=== PATIENT | female | born 1980 | race Caucasian/White ===

== ENCOUNTER → 2017-10-11 09:22 | Outpatient (CLI) | payer MEDICAID, SELFPAY ==
--- NOTE | 2017-09-06 16:12 | EKG12_ITS ---
Test Reason : PRE OP Blood Pressure : / mmHG Vent. Rate : 082 BPM Atrial Rate : 082 BPM P-R Int : 162 ms QRS Dur : 094 ms QT Int : 374 ms P-R-T Axes : 056 076 044 degrees QTc Int : 436 ms Normal sinus rhythm with sinus arrhythmia Normal ECG Confirmed by PETRA LUTZ, OCTAVIO ([id number]), dictionary editor LOI CHANG ([id number]) on 09/08/2017 12:47:40 PM Referred By: Confirmed By:OCTAVIO LAMBERT MD
[2017-09-06 17:03] LABS: International Normalized Ratio 1.1; Prothrombin Time (Protime)PT. 13.5 SECONDS (11.7-14.9)
[2017-09-06 17:04] LABS: Partial Thromboplast Time 30.6 Seconds (24.1-36.2)
[2017-09-06 17:06] LABS: AST(SGOT) 21 U/L (15-37); Alanine Aminotransfer ALT/SGPT 25 U/L (12-78); Albumin, Serum 3.1 g/dL (3.4-5.0); Alkaline Phosphatase 66 U/L (45-117); Bilirubin, Direct 0.07 mg/dL (0.00-0.30); Globulin 4.9 g/dL (2.2-4.2)
== END ==
PROVIDERS: Family Provider Nurse Practitioner Family; PCP Nurse Practitioner Family; Visit Provider Podiatrist
DX: Z01.818 Encounter for other preprocedural examination (principal)
CPT/HCPCS: 36415; 80076; 85610; 85730; 93005

== ENCOUNTER → 2018-03-02 08:15 | Outpatient (CLI) | payer MEDICAID, SELFPAY ==
--- NOTE | 2018-03-02 08:19 | RAD_ITS ---
STUDY: X-RAY - RIGHT SHOULDER REASON FOR EXAM: Chronic shoulder pain from a fall, previous surgery. TECHNIQUE: 3 view(s) of the shoulder. COMPARISON: None. FINDINGS: Normal glenohumeral articulation. Normal acromioclavicular joint. Normal acromion. Normal humeral head and visualized proximal humerus. The soft tissue structures are unremarkable. Normal visualized pulmonary apex. RAD/Shoulder min 2 Views IMPRESSION: Unremarkable x-ray examination of the right shoulder. Electronically Signed: Quinton Gordon MD at 9:03 EDT Tel , Service support ,
== END ==
PROVIDERS: Family Provider Nurse Practitioner Family; PCP Nurse Practitioner Family; Visit Provider Orthopaedic Surgery
DX: M25.511 Pain in right shoulder (principal); G89.29 Other chronic pain
CPT/HCPCS: 73030

== ENCOUNTER → 2018-04-12 10:10 | Outpatient (CLI) | payer MEDICAID, SELFPAY ==
--- NOTE | 2018-04-12 10:25 | RAD_ITS ---
CLINICAL HISTORY: Female, 37 years old. Chronic shoulder pain. Prior torn labrum and rotator cuff surgery. PROCEDURE: ARTHROGRAM - RIGHT SHOULDER CONSENT: The procedure as well as the benefits and possible complications including infection and bleeding were explained to the patient. Informed consent was obtained. FLUOROSCOPY TIME (if supplied): (0:58) minutes/seconds Injection Information: 10 cc of dilute MR contrast. Number of images obtained: 4 TECHNIQUE: (All elements of maximal sterile barrier technique followed, including US elements as applicable) The patient was in the supine position. The overlying skin was prepped and draped in the usual sterile fashion. Following local anesthetic application and under direct fluoroscopic guidance, a 22-gauge spinal needle was utilized to access the shoulder joint. 2 cc of a Isovue-300 was injected for confirmation. Following this, 10 cc of dilute MRI contrast was injected. The patient tolerated the procedure well. RAD/Arthrogram Shoulder w/ MRI IMPRESSION: Successful right shoulder arthrogram with injection of 10 cc of dilute MRI contrast. Electronically Signed: Harrison Beauchamp MD at 11:34 EDT Tel [phone], Service support ,
--- NOTE | 2018-04-12 10:31 | MRI_ITS ---
STUDY: MRI ARTHROGRAM OF RIGHT SHOULDER REASON FOR EXAM: Female, 37 years old. History of prior rotator cuff surgery in 2004. Fall 3 weeks ago. Pain. Popping. Evaluate for labral abnormality. TECHNIQUE: Standardized fat and water weighted pulse sequences were obtained in all 3 orthogonal planes after the intra-articular administration of 10 cc of a solution containing 0.8 mL of Magnevist contrast. Abduction and external rotation images were also obtained. COMPARISON: Radiographs of the shoulder dated March 02, 2018 FINDINGS: There is adequate joint distention with contrast. There is supraspinatus tendinosis with a partial articular surface tear of the far anterior fibers measuring approximately 8 mm in widest diameter and occupying approximately 80% of the tendon thickness (coronal series 5 image 12). There is an extension of the partial articular surface tear medially with a longitudinal split tear of the tendon adjacent to the partial articular surface tear (coronal series 5 image 12). There is marked thinning/attenuation of the infraspinatus tendon without a full-thickness tear (coronal series 5 image 10). There is subscapularis tendinosis with minimal thickening without a full-thickness tear (axial series 4 images 8-11). Normal teres minor tendon. Normal supraspinatus muscle. Normal infraspinatus muscle. Normal subscapularis muscle. Normal teres minor muscle. Normal glenohumeral articulation. There is minimal cystic change in the lateral aspect of the humeral head (coronal series 6 image 11). Normal biceps labral complex. Normal intracapsular long biceps tendon. Normal labrum. Normal capsulo- ligamentous complex. Normal rotator interval. There is acromioclavicular joint hypertrophy with narrowing of the subacromial space (coronal series 6 images 10-14). There is a Type II morphology (curved), with a neutral orientation. There is no subacromial-subdeltoid bursal fluid. Normal visualized coracohumeral and coracoacromial ligaments. Normal quadrilateral space. Normal axillary space. Normal deltoid muscle. Normal trapezius muscle. MRI/Upper Ext Jt Only W/Contrast IMPRESSION: Supraspinatus tendinosis with a partial articular surface tear as described. Infraspinatus and subscapularis tendinosis without a full-thickness tear. Minimal cystic change in the humeral head. Acromioclavicular joint hypertrophy with narrowing of the subacromial space. No abnormality identified in the glenoid labrum. Electronically Signed: Abiodun Brunson MD at 11:06 EDT , Service support ,
== END ==
PROVIDERS: Family Provider Nurse Practitioner Family; PCP Nurse Practitioner Family; Visit Provider Orthopaedic Surgery
DX: S43.439A Superior glenoid labrum lesion of unspecified shoulder, initial encounter (principal); M25.311 Other instability, right shoulder
CPT/HCPCS: 23350; 73222; 77002; A9577; Q9967

== ENCOUNTER 2018-10-18 07:47 | Day surgery (SDC) | payer MEDICAID, SELFPAY ==
[2018-09-28 09:59] VITALS: BMI 56.1
[2018-10-18] VITALS (9 sets, daily range): BP systolic 120–141; BP diastolic 45–82; PULSE 88–106; RESP 16–18; TEMP 36.1–36.8; O2SAT 95–99; BMI 58.7
[2018-10-18 08:19] LABS: Internal QC Validated? YES +Cl - CLEAR BKGD; Pregnancy, Urine Negative Negative
[2018-10-18] MEDS: Cefazolin 2 GM in 0.9% Normal Saline 100 ML IV (11:05)
[2018-10-18] MEDS: Bupiv/Epi 0.5% Mpf 30 ML Vial (11:18)
[2018-10-18] MEDS: MethylPREDNISolone Acetate 80 MG/ML Vial (11:50)
[2018-10-18] MEDS: Bupivacaine 0.5% PF 10 ML VIAL (11:50)
[2018-10-18] MEDS: Morphine 4 MG/ML Syringe IV (11:50)
--- NOTE | 2018-10-18 12:16 | PCM.DC.ORTHO ---
Discharge Diet: No Restrictions Discharge Activity: May Not Shower Call your doctor if you observe: Inability to urinate, Inability to have a bowel movement, Shortness of breath, Increased palpitations (irregular heartbeat) Additional Instructions: Keep dressing on for 48 hours. Then may remove begin showering daily and apply Band-Aids as needed. Active range of motion is okay avoid heavy lifting pushing or pulling with the operative extremity. Ice 15 minutes on 15 minutes off for the next week encourage elbow wrist and shoulder range of motion no tub baths for 3 weeks postop Allergies/Adverse Reactions: Allergies adhesive Allergy (Verified 10/03/18 14:12) Rash Medications to take at Discharge Cetirizine HCl [Zyrtec] 10 mg PO QHS 09/02/17 Fluticasone 0.05% [Flonase Nasal Hana] 2 spray NASAL QHS 09/02/17 Hydroxyzine HCl 100 mg PO QHS 09/02/17 Losartan Potassium [Cozaar] 100 mg PO QHS 09/02/17 Omeprazole [Prilosec] 40 mg PO QHS 09/02/17 Sertraline HCl [Zoloft] 100 mg PO QHS 09/02/17 Ferrous Sulfate 325 mg PO QHS 10/03/18 MedroxyPROGESTERone [Depo-Provera] 150 mg IM .[id number] 10/03/18 amoxicillin 500 mg capsule 500 mg PO BID #12 cap 10/09/18 Oxycodone HCl/Acetaminophen [Percocet 5/325] 1 - 2 tablet PO Q4H PRN PRN 7 Days #60 tablet 10/18/18 The following prescriptions were given: Oxycodone HCl/Acetaminophen [Percocet 5/325] 1 - 2 tablet PO Q4H PRN PRN 7 Days #60 tablet PRN Reason: Pain Orders to be completed after discharge: 12 Lead EKG [CVS] Time Frame: 10/03/18, Facility: [facility], Location: Cardiovascular Services Partial Thromboplast Time Time Frame: 10/03/18, Location: Laboratory CBC-Complete Blood Cnt No Diff Time Frame: 10/03/18, Location: Laboratory Comprehensive Metabolic Profil Time Frame: 10/03/18, Location: Laboratory Prothrombin Time w/INR Time Frame: 10/10/18, Location: Laboratory Primary Care Physician: [place],Belkys, PICKER PACKER-C [Primary Care Provider] - Test Results: Test results from this visit will be discussed in further detail at your follow-up appointment, if applicable. Please Follow Up With: Saleem Goddard DO - [facility] Proposed Discharge Date: 10/18/18
--- NOTE | 2018-10-18 12:26 | OP.PCM_ITS ---
Report of Operation Date of Procedure: 10/18/18 Description of Surgical Findings:: Preoperative diagnosis: Right shoulder partial rotator cuff tear biceps tendinopathy Postoperative diagnosis: No significant rotator cuff tear degenerative anterior and superior labral tearing biceps tendinopathy subacromial Impingement Procedure right shoulder arthroscopic labral debridement biceps tenotomy evaluation of rotator cuff and subacromial decompression Anesthesia: General. No block was performed secondary to patient's BMI contraindication The L5 cc Indication for procedure: This is a 37-year-old female patient with a long- standing history of right shoulder pain. She has had prior arthroscopic surgery for a labral repair in the past. She has failed conservative treatment did have an MRI performed which showed biceps tendinopathy and tendinopathy versus partial tearing of her rotator cuff. She did wish to proceed with an elective exploration with arthroscopy and surgery as indicated. Risks benefits and alternatives of the procedure were reviewed including risk of bleeding infection nerve artery tissue damage need for further surgery continued pain postoperative stiffness and need for postoperative physical therapy to continued pain. Patient was met in the preoperative holding area the operative extremity was identified by both the patient and the physician and was marked. Patient was met by anesthesia and brought back to the operating room on a wheeled cart. She was transferred to the operating T table in the supine position. Anesthesia was started. Patient was then positioned in the beachchair configuration. Bony prominences were well-padded. The patient was prepped and draped in the usual sterile fashion. A timeout was called to ensure the proper patient procedure and extremity were being contemplated. Anatomic landmarks were palpated and marked with a marking pen. A 0.25% Marcaine with epinephrine was injected into the planned portal sites. A 11 blade scalpel was used to make a stab incision in the posterior lateral portal. Arthroscope was inserted into the glenohumeral space with ease. Inflow and outflow tubes were attached and arthroscopic visualization began. An anterior portal was established with an 18-gauge spinal needle. A blunt instrument was inserted followed by a shaver. It was used as a probe to evaluate the labrum which had degenerative tearing from posterior superior to anterior inferior. 1 of the prior suture anchors suture was loose and there was degenerative tearing throughout. The shaver was used to perform a labral debridement and an ArthroCare wand was used to perform a biceps tenotomy there was noted to be lipstick lesion of the biceps tendon. The rotator cuff was evaluated and there was no undersurface tearing event seen. The axillary pouch was investigated and was free of loose bodies. The subscapularis was intact. The arthroscope was then repositioned into the subacromial space and a lateral portal was established. A subacromial decompression with an ArthroCare wand and shaver was performed. There was noted to be anterior spurring of the acromion which was burred to create a flat surface. Performing an anterior acromioplasty. The bursal side of the rotator cuff was evaluated and was free of tearing. The wound was thoroughly irrigated through the scope followed by a subacromial injection with 40 mg Depo-Medrol 4 mg of morphine and 5 cc of 0.5% Marcaine plain. Suture portals were closed with 3-0 nylon arthroscopic stitches followed by Xeroform 4 x 4 ABD and a Ioban dressing. A regular sling was placed. Anesthesia was reversed and patient tolerated the procedure well was and was transferred to the PACU all counts were correct patient will follow-up in the office in 2 weeks she may begin active range of motion immediately
[2018-10-18] MEDS: oxyCODONE 5 MG Tablet 10 MG PO (13:46)
[2018-10-18] MEDS: Acetaminophen 325 MG Tablet 650 MG PO (13:46)
== END 2018-10-18 14:18 | disposition home or self-care (01) ==
LOC: SDC 07:48 → AC 07:50
PROVIDERS: Anesthesiology; Family Provider Nurse Practitioner Family; PCP Nurse Practitioner Family; Referring Provider Orthopaedic Surgery; Visit Provider Orthopaedic Surgery
PROC: (CPT 29827; principal; 2018-10-18 09:20)
DX: M75.111 Incomplete rotator cuff tear or rupture of right shoulder, not specified as traumatic (principal); M67.911 Unspecified disorder of synovium and tendon, right shoulder; X58.XXXA Exposure to other specified factors, initial encounter; Y93.9 Activity, unspecified; Y92.9 Unspecified place or not applicable; Y99.9 Unspecified external cause status; I10 Essential (primary) hypertension; D64.9 Anemia, unspecified; K21.9 Gastro-esophageal reflux disease without esophagitis; F32.9 Major depressive disorder, single episode, unspecified; F41.9 Anxiety disorder, unspecified; Z79.899 Other long term (current) drug therapy; Z87.19 Personal history of other diseases of the digestive system
CPT/HCPCS: 29823; 29826; 81025; J7120; A4216; J2405; J3490

== ENCOUNTER → 2019-02-15 12:06 | Outpatient (CLI) | payer MEDICAID, SELFPAY ==
[2018-10-18 08:17] VITALS: BMI 58.7
[2019-02-15 16:04] LABS: hCG Titer Quant., Serum < 1 mIU/mL (1-3)
== END ==
PROVIDERS: Family Provider Nurse Practitioner Family; PCP Nurse Practitioner Family; Referring Provider Obstetrics & Gynecology; Visit Provider Obstetrics & Gynecology
DX: Z30.019 Encounter for initial prescription of contraceptives, unspecified (principal)
CPT/HCPCS: 36415; 84144; 84702

== ENCOUNTER → 2019-07-18 14:48 | Outpatient (CLI) | payer MEDICAID, SELFPAY ==
[2019-07-18 09:37] VITALS: BMI 58.7
--- NOTE | 2019-07-18 14:50 | RAD_ITS ---
STUDY: X-RAY - CERVICAL SPINE REASON FOR EXAM: Female, 38 years old. Pain TECHNIQUE: 6 view(s) of the cervical spine were obtained. COMPARISON: None FINDINGS: Normal anterior atlantoaxial articulation. Normal odontoid process. There is straightening of the normal cervical lordosis. Normal vertebral bodies and endplates. Normal disc space heights. Normal visualized intervertebral neuroforamina. The soft tissue structures are unremarkable. RAD/Cerv Spine 4 or 5 Views IMPRESSION: Straightening of the normal lordotic curvature. This may be positional in nature or due to muscular spasm. There is no evidence of fracture or subluxation. Disc spacing is preserved. Electronically Signed: Sebastien Ingram MD at 22:27 EST , Service support ,
== END ==
PROVIDERS: Family Provider Nurse Practitioner Family; PCP Nurse Practitioner Family; Referring Provider Orthopaedic Surgery; Visit Provider Orthopaedic Surgery
DX: M25.511 Pain in right shoulder (principal)
CPT/HCPCS: 72050

== ENCOUNTER → 2019-10-23 15:00 | Outpatient (CLI) | payer MEDICAID, SELFPAY ==
[2019-07-18 09:37] VITALS: BMI 58.7
[2019-10-25 20:26] LABS: HPV Reflexed? NOT INDICATED
== END ==
PROVIDERS: PCP Nurse Practitioner Family; Visit Provider Obstetrics & Gynecology
DX: Z12.4 Encounter for screening for malignant neoplasm of cervix (principal)
CPT/HCPCS: 88175; G0145

== ENCOUNTER → 2022-02-24 | Outpatient (CLI) | payer MEDICAID, SELFPAY ==
[2022-03-02 15:23] LABS: HPV Reflexed? NOT INDICATED
== END | disposition home or self-care (01) ==
LOC: LABSPEC 15:26
PROVIDERS: PCP Nurse Practitioner Family; Visit Provider Obstetrics & Gynecology
DX: Z12.4 Encounter for screening for malignant neoplasm of cervix (principal)
CPT/HCPCS: 88175; G0145

== ENCOUNTER → 2022-08-10 | Outpatient (CLI) | payer MEDICAID, SELFPAY | END | disposition home or self-care (01) | LOC: LABSPEC 08:49 | PROVIDERS: PCP Nurse Practitioner Family; Visit Provider Obstetrics & Gynecology | DX: R30.0 Dysuria (principal) | CPT/HCPCS: 87086; 87088 ==

== ENCOUNTER 2025-01-14 18:00 | Emergency (ER) | payer OTHER, SELFPAY ==
[2025-01-14 18:01] VITALS: BP 134/70; PULSE 84; RESP 18; TEMP 36.6; O2SAT 99; BMI 61.9
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
[2025-01-14] MEDS: Ondansetron 4 MG/2 ML Vial IV (21:05)
[2025-01-14] MEDS: Morphine 4 MG/ML Syringe IV (21:05)
[2025-01-14] MEDS: Lorazepam 2 MG/ML WCH Syringe 1 MG IV (21:05)
[2025-01-14 22:00] VITALS: BP 138/75; PULSE 78; O2SAT 99
[2025-01-14 23:15] VITALS: BP 138/75; PULSE 78; RESP 16; TEMP 36.6; O2SAT 99
== END 2025-01-14 23:15 | disposition home or self-care (01) ==
PROVIDERS: Emergency Provider Emergency Medicine; PCP Nurse Practitioner Family; Visit Provider Emergency Medicine
DX: S09.90XA Unspecified injury of head, initial encounter (principal); Z68.44 Body mass index [BMI] 60.0-69.9, adult; S16.1XXA Strain of muscle, fascia and tendon at neck level, initial encounter; S20.219A Contusion of unspecified front wall of thorax, initial encounter; V43.52XA Car driver injured in collision with other type car in traffic accident, initial encounter; I10 Essential (primary) hypertension; E66.9 Obesity, unspecified; Z79.899 Other long term (current) drug therapy
CPT/HCPCS: 70450; 71260; 72125; 96374; 96375; 99282; Q9967; A4216; J2405